=== PATIENT | female | born 1990 ===

== ENCOUNTER 2024-10-02 00:42 | Inpatient (IN) | payer OTHER ==
[~2024-10-02] VITALS: Ht 170.2 cm; Wt 91.9 kg
[2024-10-02 02:01] LABS: COVID AG,FIA SOURCE NASAL SWAB
[2024-10-02 02:07] LABS: APPEARANCE,URINE CLEAR (CLEAR); BILIRUBIN,URINE NEGATIVE (NEGATIVE); COLOR,URINE YELLOW (YELLOW); GLUCOSE, URINE (UA) NEGATIVE (NEGATIVE); KETONES,URINE 80-100 mg/dL (NEGATIVE); LEUKOCYTE ESTERASE ,URINE TRACE (NEGATIVE); NITRATE,URINE NEGATIVE (NEGATIVE); OCCULT BLOOD,URINE NEGATIVE (NEGATIVE); PROTEIN,URINE 30-70 mg/dL (NEGATIVE); SPECIFIC GRAVITIY, URINE 1.034 (1.003-1.030); UROBILINOGEN,URINE <=1.0 mg/dL (<=1.0)
[2024-10-02 02:07] LABS: SARS-COV2 (COVID) ANTIGEN,FIA Negative (Negative)
[2024-10-02 02:09] LABS: BASOPHILS % (AUTO) 0.6 % (0.0-2.0); EOSINOPHILS % (AUTO) 1.7 % (1.0-6.0); HEMATOCRIT 40.5 % (36-46); HEMOGLOBIN 13.9 g/dL (12.0-16.0); LYMPHOCYTES # (AUTO) 2.1 K/uL (1.0-4.8); LYMPHOCYTES % (AUTO) 25.8 % (22.0-44.0); MEAN CORPUSCULAR HEMOGLOBIN 29.9 pg (26.0-34.0); MEAN CORPUSCULAR HGB CONC 34.3 G/dL (31.0-37.0); MEAN CORPUSCULAR VOLUME 87 fL (80-100); MONOCYTES # (AUTO) 0.9 K/uL (0.1-1.0); MONOCYTES % (AUTO) 11.1 % (2.0-9.0); NEUTROPHILS # (AUTO) 4.9 K/uL (1.8-7.7); NEUTROPHILS % (AUTO) 60.8 % (40.0-70.0); PLATELET COUNT (AUTO) 271 K/uL (150-450); RED BLOOD CELL COUNT(AUTO) 4.64 MIL/uL (4.00-5.20); RED CELL DISTRIBUTION WIDTH 12.8 % (11.5-14.5); WHITE BLOOD COUNT (AUTO) 8.1 K/uL (4.5-11.0)
[2024-10-02 02:09] LABS: AMORPHOUS SEDIMENT,UR Moderate /LPF (None Seen); BACTERIA,URINE None Seen /HPF (None Seen); RBC,URINE None Seen /HPF (0-2); SQUAMOUS EPITHELIAL CELL,UR Few /LPF (None Seen); WBC,URINE 0-2 /HPF (0-5)
[2024-10-02 02:13] LABS: ALCOHOL, URINE DRUG SCREEN NEGATIVE (NEGATIVE); AMPHET/METH SCREEN,URINE NEGATIVE (NEGATIVE); BARBITURATE SCREEN, URINE NEGATIVE (NEGATIVE); BENZODIAZEPINES SCREEN,URINE NEGATIVE (NEGATIVE); CANNABINOID SCREEN,URINE NEGATIVE (NEGATIVE); COCAINE SCREEN,URINE NEGATIVE (NEGATIVE); METHADONE SCREEN, URINE POSITIVE (NEGATIVE); OPIATE SCREEN,URINE NEGATIVE (NEGATIVE); PHENCYCLIDINE SCREEN,URINE NEGATIVE (NEGATIVE)
[2024-10-02 02:18] LABS: ANION GAP 8 mmol/L (8-16); CALCIUM, TOTAL 8.5 mg/dL (8.8-10.5); CARBON DIOXIDE 30 mmol/L (22-29); CHLORIDE 104 mmol/L (98-107); CREATININE 0.95 mg/dL (0.60-1.30); GLOMERULAR FILTR. RATE CALC > 60 mL/min (>60); GLUCOSE,RANDOM 99 mg/dL (70-110); POTASSIUM 3.7 mmol/L (3.5-5.1); SODIUM SERUM 142 mmol/L (136-145); UREA NITROGEN, BLOOD 17 mg/dL (7-18)
[2024-10-02 03:00] LABS: ALCOHOL, BLOOD (SERUM) < 3 mg/dL (0-10)
[2024-10-02 03:45] VITALS: BP 122/75; PULSE 79; RESP 18; TEMP 98.5; O2SAT 99
[2024-10-02] MEDS ORDERED: LORazepam 2 MG/ML VIAL IVP PRN (05:45)
[2024-10-02] MEDS ORDERED: LOPERAMIDE HCL 2 MG CAPSULE PO PRN (05:45)
[2024-10-02] MEDS: SODIUM CHLORIDE 0.9% 1,000 ML IV ONE (06:18)
[2024-10-02] MEDS: DICYCLOMINE HCL 10 MG CAPSULE PO PRN (08:03)
[2024-10-02 08:08] VITALS: BP 103/71; PULSE 73; RESP 18; TEMP 98.1; O2SAT 92
[2024-10-02] MEDS: METHADONE HCL 10 MG TABLET PO SCH (09:30)
[2024-10-02] MEDS: METOCLOPRAMIDE HCL 5 MG/ML 2 ML VIAL IVP PRN (11:06)
[2024-10-02 15:56] VITALS: BP 94/63; PULSE 56; RESP 18; TEMP 98.2; O2SAT 97
[2024-10-02 20:07] VITALS: BP 103/61; PULSE 68; RESP 18; TEMP 98.6; O2SAT 99
[2024-10-02] MEDS: TEMAZEPAM 15 MG CAPSULE PO SCH (20:07)
[2024-10-03 04:52] VITALS: BP 100/61; PULSE 67; RESP 18; TEMP 98; O2SAT 100
[2024-10-03 08:07] VITALS: BP 123/60; PULSE 72; RESP 18; TEMP 98.6; O2SAT 100
[2024-10-03 16:05] VITALS: BP 122/70; PULSE 68; RESP 19; TEMP 98.5; O2SAT 96
[2024-10-03 19:35] VITALS: BP 109/68; PULSE 72; RESP 18; TEMP 98.2; O2SAT 97
[2024-10-04 05:05] VITALS: BP 117/70; PULSE 70; RESP 18; TEMP 97.9; O2SAT 96
[2024-10-04 08:11] VITALS: BP 107/59; PULSE 69; RESP 18; TEMP 98; O2SAT 99
[2024-10-04] MEDS ORDERED: LACTULOSE 20 GM/30 ML SOLUTION UDCUP PO PRN (10:45)
[2024-10-04] MEDS ORDERED: MAGNESIUM HYDROXIDE SUSPENSION 30 ML UDCUP PO PRN (10:45)
[2024-10-04 20:39] VITALS: BP 104/66; PULSE 74; RESP 16; TEMP 98.1; O2SAT 98
[2024-10-05 04:32] VITALS: BP 110/66; PULSE 70; RESP 17; TEMP 98; O2SAT 98
[2024-10-05 07:52] VITALS: BP 130/61; PULSE 66; RESP 18; TEMP 97.7; O2SAT 97
[2024-10-05] MEDS: METHADONE HCL 10 MG TABLET PO SCH (08:53)
[2024-10-05 12:31] VITALS: BP 121/56; PULSE 68; RESP 16; TEMP 98.2; O2SAT 97
[2024-10-05 19:30] VITALS: BP 111/62; PULSE 75; RESP 18; TEMP 98.4; O2SAT 97
[2024-10-06 05:03] VITALS: BP 106/59; PULSE 81; RESP 18; TEMP 98.3; O2SAT 98
[2024-10-06] MEDS: METHADONE HCL 10 MG TABLET PO SCH (08:36)
[2024-10-06 09:03] VITALS: BP 108/67; PULSE 78; RESP 17; TEMP 98.4; O2SAT 96
[2024-10-06 20:06] VITALS: BP 129/66; PULSE 87; RESP 18; TEMP 98; O2SAT 100
[2024-10-07 04:41] VITALS: BP 108/59; PULSE 77; RESP 19; TEMP 98.2; O2SAT 97
[2024-10-07] MEDS ORDERED: TEMA15CA PO (06:22)
[2024-10-07] MEDS ORDERED: MAGN-169 PO (06:23)
[2024-10-07 08:39] VITALS: BP 135/75; PULSE 82; RESP 20; TEMP 98.9; O2SAT 98
== END 2024-10-07 11:52 | DRG 897 ==
LOC: EMS 00:50 → EDH 02:48 → 6S 03:40
PROVIDERS: ADMIT Internal Medicine; ATTEND Internal Medicine
DX: F11.13 Opioid abuse with withdrawal (principal); K59.00 Constipation, unspecified; Z20.822 Contact with and (suspected) exposure to COVID-19; E66.9 Obesity, unspecified; Z68.31 Body mass index [BMI] 31.0-31.9, adult
CPT/HCPCS: 80048; 80307; 81001; 85025; 99285; G0480; J2765; J7030